=== PATIENT | female | born 1980 ===

== ENCOUNTER → 2016-11-21 | Outpatient (REF) | payer OTHER ==
[2016-11-21 13:18] LABS: BLOOD UREA NITROGEN 12 MG/DL (7-18); CREATININE FOR GFR 0.64 MG/DL (0.55-1.02); GLOMERULAR FILTRATION RATE > 60.0 (>60)
== END ==
LOC: M LABDRAW1 10:49
PROVIDERS: ATTEND Physical Medicine & Rehabilitation
DX: M51.36 Other intervertebral disc degeneration, lumbar region (principal)

== ENCOUNTER → 2017-03-25 | Outpatient (REF) | payer OTHER ==
[2017-03-25 15:57] LABS: PLATELET COUNT, AUTOMATED 286 10^3/uL (150-450)
[2017-03-25 15:57] LABS: INR 0.95; PROTHROMBIN TIME 12.8 SECONDS (12.4-14.5)
[2017-03-25 16:07] LABS: BLOOD UREA NITROGEN 14 MG/DL (7-18)
[2017-03-25 16:07] LABS: CREATININE FOR GFR 0.75 MG/DL (0.55-1.30); GLOMERULAR FILTRATION RATE > 60.0 (>60)
== END ==
LOC: M LABDRAW1 11:45
DX: Q76.49 Other congenital malformations of spine, not associated with scoliosis (principal); M51.36 Other intervertebral disc degeneration, lumbar region